=== PATIENT | male | born 1955 | race Asian ===

== ENCOUNTER 2023-09-10 17:45 | Emergency (ER) | payer SELFPAY ==
[~2023-09-10] VITALS: Ht 188 cm; Wt 118.0 kg
[2023-09-10 17:58] VITALS: O2SAT 98
[2023-09-10 19:19] LABS: BASOPHILS % 0.6 % (0.0-2.0); EOSINOPHILS % 5.4 % (0.0-5.0); HEMATOCRIT. 33.7 % (42.0-52.0); HEMOGLOBIN. 11.5 g/dL (14.0-18.0); LYMPHOCYTES % 14.2 % (20.0-50.0); MEAN CORPUSCULAR HGB CONC 34.2 g/dL (31.0-37.0); MEAN CORPUSCULAR VOLUME 87.7 fL (80.0-94.0); MEAN PLATELET VOLUME 6.2 fl (7.4-10.4); MONOCYTES % 6.1 % (2.0-8.0); NEUTROPHILS % 73.7 % (40.0-76.0); PLATELET 187 x1000/uL (130-400); RED BLOOD CELL COUNT 3.84 mill/uL (4.7-6.1); RED CELL DISTRIBUTION WIDTH 14.5 % (11.6-14.6); WHITE BLOOD COUNT 7.5 x1000/uL (4.5-11.0)
[2023-09-10 19:35] LABS: ALANINE AMINOTRANSFERASE 11 IU/L (10-49); ALBUMIN 3.6 g/dL (3.2-4.8); ASPARTATE AMINOTRANSFERASE 17 IU/L (<34); BILIRUBIN TOTAL 0.3 mg/dL (0.1-1.0); CALCIUM 7.9 mg/dL (8.7-10.4); CARBON DIOXIDE 23 mEq/L (21-32); CHLORIDE 103 mEq/L (98-107); CREATININE 2.4 mg/dL (0.6-1.3); GLUCOSE 327 mg/dL (70-105); POTASSIUM 5.1 mEq/L (3.5-5.1); PROTEIN TOTAL 6.7 g/dL (6.0-8.3); SODIUM 133 mEq/L (136-145); UREA NITROGEN BLOOD 27 mg/dL (9-23)
[2023-09-10] MEDS ORDERED: AZIT250T12 MT (20:23)
[2023-09-10] MEDS: AZITHROMYCIN 500MG/250ML 250 ML IV STA (20:40)
[2023-09-10] MEDS: KETOROLAC 30MG/ML VIAL IV ONE (20:42)
[2023-09-10] MEDS: SODIUM CHLORIDE 0.9% 1,000 ML IV ONE (20:45)
[2023-09-10] MEDS: DEXAMETHASONE 4MG/ML 1ML VIAL IV ONE (20:45)
[2023-09-10 22:41] VITALS: BP 169/93; PULSE 76; RESP 18; TEMP 98.6
== END 2023-09-10 22:40 | disposition home or self-care (01) ==
LOC: ER 17:45
DX: J06.9 Acute upper respiratory infection, unspecified (principal); E11.22 Type 2 diabetes mellitus with diabetic chronic kidney disease; I12.9 Hypertensive chronic kidney disease with stage 1 through stage 4 chronic kidney disease, or unspecified chronic kidney disease; N18.9 Chronic kidney disease, unspecified; N28.1 Cyst of kidney, acquired; Z20.822 Contact with and (suspected) exposure to COVID-19
CPT/HCPCS: 80053; 85025; 87804 ×2; 36415; 71045; 93005; 96365; 96375; 99285; 87426; J0456; J1100; J1885; J7030; Z7610 ×3

== ENCOUNTER 2023-12-05 08:44 | Emergency (ER) | payer SELFPAY ==
[~2023-12-05] VITALS: Ht 172.7 cm; Wt 80.0 kg
[~2023-12-05 08:44] MED LIST: AZIT250T12 MT; LIP40 MT
[2023-12-05 08:48] VITALS: O2SAT 98
[2023-12-05] MEDS: PREDNISONE 20MG TABLET PO ONE (09:41)
[2023-12-05] MEDS: OXYCODONE HCL/ACETAMINOPHEN 5/325MG TABLET PO ONE (09:41)
[2023-12-05] MEDS ORDERED: OXYC-100 MT (09:47)
[2023-12-05] MEDS ORDERED: P20 PO (09:47)
[2023-12-05 10:33] VITALS: BP 129/77; PULSE 91; RESP 18; TEMP 98.4
== END 2023-12-05 10:57 | disposition home or self-care (01) ==
LOC: ER 09:33
DX: M10.9 Gout, unspecified (principal); E11.9 Type 2 diabetes mellitus without complications; E78.00 Pure hypercholesterolemia, unspecified; I10 Essential (primary) hypertension
CPT/HCPCS: 99283; J7512

== ENCOUNTER 2024-01-23 21:43 | Emergency (ER) | payer MEDICAID ==
[~2024-01-23] VITALS: Ht 180.3 cm; Wt 112.0 kg
[~2024-01-23 21:43] MED LIST changes: +OXYC-100 MT; +P20 PO
[2024-01-23 21:59] VITALS: TEMP 98.6; O2SAT 99
[2024-01-23] MEDS: ACETAMINOPHEN 1000MG/100ML 100 ML IV ONE (22:37)
[2024-01-23 22:48] LABS: BASOPHILS % 0.5 % (0.0-2.0); HEMATOCRIT. 33.7 % (42.0-52.0); HEMOGLOBIN. 11.8 g/dL (14.0-18.0); LYMPHOCYTES % 20.8 % (20.0-50.0); MEAN CORPUSCULAR HEMOGLOBIN 30.1 pg (28.0-32.0); MEAN CORPUSCULAR HGB CONC 35.1 g/dL (31.0-37.0); MEAN CORPUSCULAR VOLUME 85.7 fL (80.0-94.0); MEAN PLATELET VOLUME 6.2 fl (7.4-10.4); MONOCYTES % 7.2 % (2.0-8.0); NEUTROPHILS % 65.5 % (40.0-76.0); PLATELET 181 x1000/uL (130-400); RED BLOOD CELL COUNT 3.94 mill/uL (4.7-6.1); RED CELL DISTRIBUTION WIDTH 14.4 % (11.6-14.6); WHITE BLOOD COUNT 6.2 x1000/uL (4.5-11.0)
[2024-01-23 22:55] LABS: CARBON DIOXIDE 19 mEq/L (21-32)
[2024-01-23 22:56] LABS: CALCIUM 8.1 mg/dL (8.7-10.4); CHLORIDE 105 mEq/L (98-107); POTASSIUM 4.2 mEq/L (3.5-5.1); SODIUM 131 mEq/L (136-145)
[2024-01-23 22:59] LABS: INR 0.9; PARTIAL THROMBOPLASTIN TIME 28.1 sec (23.4-31.0); PROTHROMBIN TIME 9.8 sec (9.6-11.0)
[2024-01-23 23:01] LABS: GLUCOSE 139 mg/dL (70-105); UREA NITROGEN BLOOD 45 mg/dL (9-23)
[2024-01-23 23:04] LABS: CREATININE 2.8 mg/dL (0.6-1.3); ETHANOL BLOOD < 10 mg/dL (<10)
[2024-01-23 23:05] LABS: TROPONIN I HIGH SENSITIVITY 4 ng/L (3.0-53)
[2024-01-24 00:53] LABS: CLARITY URINE CLEAR (CLEAR); COLOR URINE YELLOW (YELLOW); GLUCOSE URINE TRACE (NEGATIVE); KETONES URINE NEGATIVE (NEGATIVE); LEUKOCYTE ESTERASE URINE NEGATIVE (NEGATIVE); NITRITE URINE NEGATIVE (NEGATIVE); OCCULT BLOOD URINE TRACE (NEGATIVE); PH URINE 6.5 (4.5-8.0); PROTEIN URINE 3+ (NEGATIVE); SPECIFIC GRAVITY URINE 1.007 (1.005-1.030); UROBILINOGEN URINE 0.2 E.U./dL (0.2-1.0)
[2024-01-24 01:01] LABS: *AMPHETAMINES SCREEN URINE NEGATIVE (NEGATIVE); *BARBITURATES SCREEN URINE NEGATIVE (NEGATIVE); *BENZODIAZEPINES SCREEN URINE NEGATIVE (NEGATIVE); *COCAINE SCREEN URINE NEGATIVE (NEGATIVE); CANNABINOID URINE SCREEN NEGATIVE (NEGATIVE); ECSTASY MDMA SCREEN URINE NEGATIVE (NEGATIVE); METHADONE URINE SCREEN NEGATIVE (NEGATIVE); OPIATES URINE SCREEN NEGATIVE (NEGATIVE); PHENCYCLIDINE URINE SCREEN NEGATIVE (NEGATIVE)
[2024-01-24] MEDS ORDERED: INSU100I28 SQ (01:14)
[2024-01-24] MEDS ORDERED: AMLO5TAB88 MT (01:14)
[2024-01-24 01:24] VITALS: BP 151/85; PULSE 65; RESP 12; O2SAT 97
[2024-01-24 01:49] LABS: BACTERIA URINE NONE SEEN; RBC URINE 0-2 /hpf (0-2); SQUAMOUS EPITHELIAL CELL URINE NONE SEEN /lpf (RARE/1+); WBC URINE NONE SEEN /hpf (0-2)
== END 2024-01-24 01:50 | disposition home or self-care (01) ==
LOC: ER 21:43
DX: R51.9 Headache, unspecified (principal); R42 Dizziness and giddiness; E11.9 Type 2 diabetes mellitus without complications; E78.00 Pure hypercholesterolemia, unspecified; I10 Essential (primary) hypertension; Z79.899 Other long term (current) drug therapy; Z76.0 Encounter for issue of repeat prescription
CPT/HCPCS: 80048; 80320; 83880; 85025; 85610; 85730; 84484; 36415; 71045; 70450; 93005; 96365; 96366; 99285; 80305; 81003; Z7610; G0480; J0131